=== PATIENT | female | born 1965 | race Two or more races ===

== ENCOUNTER 2020-04-18 06:21 | Day surgery (SDC) | payer OTHER ==
[~2020-04-18 06:21] MED LIST: LEXAPRO5 MG PO; LUNESTA1 MG PO; METHOTREXATE2.5 MG PO; RISPERDAL1 MG PO; VISTARIL25 MG PO
[2020-04-18] MEDS ORDERED: PERCOCET 5-3251 EACH PO (16:06)
[2020-04-18] MEDS ORDERED: NEURONTIN600 M1 PO (16:06)
[2020-04-18] MEDS ORDERED: COLACE100 MG PO (16:07)
== END 2020-04-18 21:05 | disposition home or self-care (01) ==
LOC: CIR.AMB 06:21
PROVIDERS: ATTEND Surgery
DX: K43.0 Incisional hernia with obstruction, without gangrene (principal); Z20.828 Contact with and (suspected) exposure to other viral communicable diseases